=== PATIENT | female | born 1955 | race African-American/Black ===

== ENCOUNTER 2016-11-19 01:25 | Emergency (ER) | payer MEDICAID ==
[~2016-11-19] VITALS: Ht 180.3 cm; Wt 140.0 kg
[2016-11-19] MEDS ORDERED: IBUPROFEN 800MG TABLET PO ONE (02:30)
[2016-11-19 02:35] LABS: BASOPHILS % 0.7 % (0.0-2.0); EOSINOPHILS % 0.9 % (0.0-5.0); HEMATOCRIT. 33.4 % (36.0-48.0); HEMOGLOBIN. 11.2 g/dL (12.0-16.0); LYMPHOCYTES % 19.9 % (20.0-50.0); MEAN CORPUSCULAR HEMOGLOBIN 30.2 pg (28.0-32.0); MEAN CORPUSCULAR HGB CONC 33.5 g/dL (31.0-37.0); MEAN CORPUSCULAR VOLUME 90.3 fL (81.0-99.0); MEAN PLATELET VOLUME 9.7 fl (7.4-10.4); MONOCYTES % 6.2 % (2.0-8.0); NEUTROPHILS % 72.3 % (40.0-76.0); PLATELET 185 x1000/uL (130-400); RED CELL DISTRIBUTION WIDTH 13.2 % (11.6-14.6); WHITE BLOOD COUNT 8.2 x1000/uL (4.5-11.0)
[2016-11-19 02:38] LABS: CHLORIDE 109 mEq/L (98-107); INDEX HEMOLYSI 1 (1-3); INDEX ICTERIC 1 (1-4); INDEX LIPEMIC 1 (1-3)
[2016-11-19 02:39] LABS: GLUCOSE URINE NEGATIVE (NEGATIVE); KETONES URINE NEGATIVE (NEGATIVE); LEUKOCYTE ESTERASE URINE 1+ (NEGATIVE); NITRITE URINE NEGATIVE (NEGATIVE); OCCULT BLOOD URINE NEGATIVE (NEGATIVE); PROTEIN URINE TRACE (NEGATIVE); SPECIFIC GRAVITY URINE 1.023 (1.005-1.030)
[2016-11-19 02:42] LABS: INR 1.2; PROTHROMBIN TIME 12.4 sec
[2016-11-19 02:47] LABS: ALANINE AMINOTRANSFERASE 11 IU/L (13-61); ALBUMIN 3.5 g/dL (3.4-5.0); ANION GAP 10; CALCIUM 8.5 mg/dL (8.5-10.1); CARBON DIOXIDE 29 mEq/L (21-32); UREA NITROGEN BLOOD 14 mg/dL (7-21); eGFR 55 mL/min (>60)
[2016-11-19 02:51] LABS: CLARITY URINE CLOUDY (CLEAR); COLOR URINE YELLOW (YELLOW)
[2016-11-19 03:01] LABS: SQUAMOUS EPITHELIAL CELL URINE FEW /lpf (RARE/1+)
[2016-11-19 03:02] LABS: BACTERIA URINE 4+; RBC URINE 0-2 /hpf (0-2)
[2016-11-19] MEDS ORDERED: CEFTRIAXONE 1 G PREMIX 50 ML IV ONE (03:15)
[2016-11-19] MEDS ORDERED: MORPHINE SULFATE 4 MG/ML CPJ (NOT FOR IM USE) IV ONE (04:15)
[2016-11-19] MEDS ORDERED: ONDANSETRON HCL 4MG/2ML VIAL IV ONE (04:15)
[2016-11-19 11:01] VITALS: BP 157/98
== END 2016-11-19 13:10 | disposition home or self-care (01) ==
LOC: ER 01:42
DX: M54.12 Radiculopathy, cervical region (principal); R20.0 Anesthesia of skin; M19.90 Unspecified osteoarthritis, unspecified site; N39.0 Urinary tract infection, site not specified; I10 Essential (primary) hypertension; I51.7 Cardiomegaly; Z85.3 Personal history of malignant neoplasm of breast
CPT/HCPCS: 36415; 70450; 71010; 80053; 81001; 85025; 85610; 96365; 96375; 99285; J0696; J2270; J2405; Z7610